=== PATIENT | male | born 1995 | race African-American/Black ===

== ENCOUNTER → 2018-05-06 | Day surgery (SDC) | payer OTHER ==
[2018-05-02 14:51] VITALS: BMI 21.9
[2018-05-06 08:58] LABS: BASO % 0.5 % (0-2.0); EOS % 0.7 % (0-4.5); HEMATOCRIT 38.5 % (35.4-49); LYMPH % 67.4 % (8-40); MCH 30.8 pg (25.7-33.7); MCHC 33.7 g/dl (32.0-35.9); MEAN CELL VOLUME 91.4 fl (80-96); MEAN PLT VOLUME 8.5 fl (7.5-11.1); MONO % 6.2 % (3.8-10.2); NEUT % 25.2 % (42.8-82.8); PLATELET COUNT 151 K/MM3 (134-434); RBC 4.21 M/mm3 (4.00-5.60); RDW 14.2 % (11.9-15.9); WHITE BLOOD COUNT 5.4 K/mm3 (4.0-10.0)
[2018-05-06 09:30] LABS: INR 0.98 (0.83-1.09); PROTHROMBIN TIME (PATIENT) 11.1 SEC (9.7-13.0)
[2018-05-06 09:55] VITALS: TEMP 98.4
[2018-05-06 12:29] LABS: ACANTHOCYTES 0; ANISOCYTOSIS 0; HELMET CELLS 0; HOWELL-JOLLY BODIES 0; MACROCYTOSIS 0; OVALOCYTE 0; PLATELET ESTIMATE DECREASED; ROULEAU 0; SICKELED CELLS 0; TARGET CELLS 0; TEAR DROP CELLS 0; TOXIC GRANULATION 0
[2018-05-06 15:53] VITALS: BP 116/68; PULSE 73
--- NOTE | 2018-05-13 17:38 | PATH ---
Surgical Pathology Report Patient Name: EDU LINDA [facility]. Rec. #: [id number] /Age/Gender: 1995 (Age: 22) / M Account: [id number] Location: RADIOLOGY INTER Taken: 05/06/2018 Received: 05/06/2018 Reported: 05/13/2018 Physicians: Ankita Nunez M.D. Specimen(s) Received LYMPH NODE BIOPSY (ALSO RECEIVED TISSUE IN RPMI) Clinical History 22-year-old male with history of HIV, now with bilateral cervical lymph node enlargement Final Diagnosis CERVICAL LYMPH NODE, CORE BIOPSY: FRAGMENTS OF LYMPH NODES WITH NO EVIDENCE OF LYMPHOPROLIFERATIVE PROCESS. SEE COMMENT. Comments: Flow cytometry immunophenotyping, performed on the concurrent sample ([id number]), detected a CD10+ B-cell population with no evidence of clonality, probably representing germinal center cells. The specimen shows plasmacytosis with [place] excess. However, clonal plasma cell populations cannot be definitely demonstrated. Correlation with relevant clinical and laboratory data is essential. If the lymphadenopathy persists, repeat/excisional lymph node biopsy with complete evaluation (including flow cytometry immunophenotyping) is suggested for definitive assessment. This case was sent to Dr. Anthony Berrios from [facility], [place], [place] ([id number]) the diagnosis above reflects his opinion. See [facility] report ([id number] and [id number]) for additional details. Electronically Signed Christina Conway M.D. Addendum Reported: 06/12/2018 Addendum Diagnosis AFB AND PAS special stains are negative for Acid fast bacilli and fungal organisms. Christina Conway M.D. Gross Description Received in formalin labeled "lymph node biopsy," are 4 rivera fragments of soft tissue ranging from 0.1-0.6 cm in length and averaging 0.1 cm diameter. The specimens are submitted in toto in one cassette. There is additional tissue received in RPMI solution which is sent for flow cytometry. saudi/05/06/2018
== END | disposition home or self-care (01) ==
LOC: JRADIR 08:37
PROVIDERS: ATTEND Specialist
PROC: 07B13ZX Excision of Right Neck Lymphatic, Percutaneous Approach, Diagnostic (ICD-10-PCS; principal; 2018-05-06)
DX: R59.0 Localized enlarged lymph nodes (principal); Z21 Asymptomatic human immunodeficiency virus [HIV] infection status; J45.909 Unspecified asthma, uncomplicated
CPT/HCPCS: 36415; 76942-TC; 85025; 85610; 87899; 88305-TC; 88313-TC

== ENCOUNTER 2018-06-06 11:58 | Emergency (ER) | payer OTHER ==
[2018-06-06 12:04] VITALS: BMI 22.4
[2018-06-06] MEDS ORDERED: SODIUM CHLORIDE 0.9% 500 ML INFUS.BAG IV ONE (13:09)
--- NOTE | 2018-06-06 13:13 | PDOC ---
History of Present Illness - General Chief Complaint: Respiratory Stated Complaint: Respiratory Time Seen by Provider: 06/06/18 12:08 - History of Present Illness Initial Comments: 06/06/18 13:02 22 yo M w a hx of asthma and HIV who is not on antiretrovirals is here with a week of a constant cough occasionally productive of white sputum and a low grade fever for the past 3 days. He denies any hemoptysis, chest pain, or weight loss. He does endorse fatigue, occasional night sweats, fever, and myalgias. He had a positive PPD test and a positive interferon gamma assay. He endorses a positive family history of TB. He had a chest CT and a lymph node biopsy which showed no signs of active TB and the biopsy was AFB negative. Recent CD4 count 557 He has needed to use his albuterol inhaler more frequently than usual in the past few days and feels like his fever is causing a mild asthma exacerbation. he is not currently experiencing chest pain, SOB, or difficulty breathing. He denies any diarrhea, constipation or urinary complaints. He is sexually active with one male partner who also has HIV and is on antiretrovirals he has a hx of syphillis, likely primary, in the past which was treated with Penicillin. 06/06/18 13:13 06/06/18 13:33 06/06/18 13:34 06/06/18 14:45 Past History - Past Medical History Allergies/Adverse Reactions: Allergies Allergy/AdvReac Type Severity Reaction Status Date / Time piperacillin [From Zosyn] Allergy Unknown Rash Verified 06/06/18 12:04 tazobactam [From Zosyn] Allergy Unknown Rash Verified 06/06/18 12:04 Home Medications: Ambulatory Orders Albuterol Sulfate Inhaler - [Ventolin HFA Inhaler -] 1 - 2 inh PO QID PRN #1 inhaler 02/20/18 Fluticasone/Salmeterol [Advair 250-50 Diskus] 1 each IH BID #1 blst.w.dev Azithromycin 250 mg PO DAILY #4 tablet 06/06/18 Anemia: Yes (middle school) Asthma: Yes Cancer: No Cardiac Disorders: No CVA: No COPD: No CHF: No Dementia: No Diabetes: No GI Disorders: No Disorders: No HTN: No Hypercholesterolemia: No Liver Disease: No Seizures: No Thyroid Disease: No - Surgical History Abdominal Surgery: No Appendectomy: No Cardiac Surgery: No Cholecystectomy: No Lung Surgery: No Neurologic Surgery: No Orthopedic Surgery: No - Suicide/Smoking/Psychosocial Hx Smoking History: Never smoked Have you smoked in the past 12 months: Yes Information on smoking cessation initiated: No Hx Alcohol Use: Yes (social) Drug/Substance Use Hx: No Substance Use Type: None Hx Substance Use Treatment: No Review of Systems - Review of Systems Comments:: 06/06/18 14:54 CONSTITUTIONAL: Positive: Fever, chills, malaise, loss of appetite. Absent: diaphoresis, generalized weakness HEENT: Absent: rhinorrhea, nasal congestion, throat pain, throat swelling, difficulty swallowing, mouth swelling, ear pain, eye pain, visual Changes CARDIOVASCULAR: Absent: chest pain, syncope, palpitations, irregular heart rate, lightheadedness , peripheral edema RESPIRATORY: Positive: Cough Absent: shortness of breath, dyspnea with exertion, orthopnea, wheezing, stridor , hemoptysis GASTROINTESTINAL: Absent: abdominal pain, abdominal distension, nausea, vomiting, diarrhea, constipation, melena, hematochezia GENITOURINARY: Absent: dysuria, frequency, urgency, hesitancy, hematuria, flank pain, genital pain MUSCULOSKELETAL: Positive: myalgia Absent: arthralgia, joint swelling SKIN: Absent: rash, itching, pallor HEMATOLOGIC/IMMUNOLOGIC: Absent: easy bleeding, easy bruising, lymphadenopathy, frequent infections ENDOCRINE: Absent: unexplained weight gain, unexplained weight loss, heat intolerance, cold intolerance NEUROLOGIC: Absent: headache, focal weakness or paresthesias, dizziness, unsteady gait, seizure, mental status changes, bladder or bowel incontinence PSYCHIATRIC: Absent: anxiety, depression, suicidal or homicidal ideation, hallucinations. *Physical Exam - Vital Signs Last Vital Signs Temp Pulse Resp BP Pulse Ox 99.2 F 118 H 21 151/108 98 06/06/18 12:01 06/06/18 12:01 06/06/18 12:01 06/06/18 12:01 06/06/18 12:01 - Physical Exam Comments: 06/06/18 14:56 GENERAL: Well developed, well nourished. Awake and alert. No acute distress. HEENT: mildly erythematous retro-oropharynx Normocephalic, atraumatic. PERRLA, EOMI. No conjunctival pallor. Sclera are non- icteric. Moist mucous membranes. NECK: Occasional small bilateral lymphadenopathy Supple. Full ROM. No JVD. No thyromegaly. CARDIOVASCULAR: Tachycardic rate and regular rhythm. No murmurs, rubs, or gallops. Distal pulses are 2+ and symmetric. PULMONARY: No evidence of respiratory distress. Lungs clear to auscultation bilaterally. No wheezing, rales or rhonchi. ABDOMINAL: Soft. Non-tender. Non-distended. No rebound or guarding. No organomegaly. Normoactive bowel sounds. MUSCULOSKELETAL Normal range of motion at all joints. No bony deformities or tenderness. No CVA tenderness. EXTREMITIES: No cyanosis. No clubbing. No edema. No calf tenderness. SKIN: Warm and dry. Normal capillary refill. No rashes. No jaundice. NEUROLOGICAL: Alert, awake, appropriate. Cranial nerves 2-12 intact. Normal speech. Gait is normal without ataxia. PSYCHIATRIC: Cooperative. Good eye contact. Appropriate mood and affect. ED Treatment Course - LABORATORY CBC & Chemistry Diagram: 06/06/18 14:15 06/06/18 14:15 Medical Decision Making - Medical Decision Making 06/06/18 14:58 22 yo M w a hx of asthma and HIV who is not on antiretrovirals is here with a low grade fever and cough. Recent CD4 557. He was PPD + and igra + but chest ct, chest xr, and lymph node biopsy for AFB stain were all negative for active TB. This is most suspicious for a URI. will do nasal swabs to r/o pertussis and influenza Plan: duoneb, cbc, cmp, CXR, fluids, tylenol, re-assess. Cough improved significantly after a duoneb. Vitals re-checked and are now WNL. Consulted Dr. waldron and she agrees best course of action is to DC patient with a 4 day course of azithromycin. He will FU as outpatient with her. 06/06/18 15:06 06/06/18 16:44 *DC/Admit/Observation/Transfer Diagnosis at time of Disposition: Cough - Discharge Dispostion Disposition: HOME Condition at time of disposition: Improved Decision to Admit order: No - Prescriptions Prescriptions: Azithromycin 250 mg PO DAILY #4 tablet - Referrals Referrals: Zaida Brower LITIGATION COORDINATOR [Primary Care Provider] - - Patient Instructions Additional Instructions: Please make sure to follow up with your PCP or the [place] facility in the next 3 to 5 days to ensure you are getting better. supervisor beam department the Antibiotic we are sending to your pharmacy. Please come back to the ER if you develop a bad fever , start vomiting having bad diarrhea or have any other concerns. Print Language: MALTESE - Post Discharge Activity
[2018-06-06] MEDS ORDERED: ACETAMINOPHEN INJECTION 100 ML IVPB ONE (14:06)
[2018-06-06 14:33] LABS: BASO % 0.5 % (0-2.0); EOS % 2.4 % (0-4.5); HEMATOCRIT 41.9 % (35.4-49); LYMPH % 41.3 % (8-40); MCH 30.4 pg (25.7-33.7); MCHC 33.4 g/dl (32.0-35.9); MEAN CELL VOLUME 91.2 fl (80-96); MEAN PLT VOLUME 9.3 fl (7.5-11.1); MONO % 6.6 % (3.8-10.2); NEUT % 49.2 % (42.8-82.8); PLATELET COUNT 173 K/MM3 (134-434); RDW 14.3 % (11.9-15.9); WHITE BLOOD COUNT 6.1 K/mm3 (4.0-10.0)
[2018-06-06 14:54] LABS: CHLORIDE 108 mmol/L (98-107); POTASSIUM 4.1 mmol/L (3.5-5.1); SODIUM 145 mmol/L (136-145)
[2018-06-06 15:09] LABS: ALBUMIN 3.2 g/dl (3.4-5.0); ALK PHOS 96 U/L (45-117); ANION GAP 9 MMOL/L (8-16); BILIRUBIN,TOTAL 0.2 mg/dL (0.2-1.0); BLOOD UREA NITROGEN 7 mg/dL (7-18); CALCIUM 8.7 mg/dL (8.5-10.1); CO2 28 mmol/L (21-32); CREATININE 0.9 mg/dL (0.55-1.3); GLUCOSE,RANDOM 85 mg/dL (74-106); SGOT/AST 27 U/L (15-37); SGPT/ALT 29 U/L (13-61); TOT PROT 9.4 g/dl (6.4-8.2)
[2018-06-06] MEDS ORDERED: ALBUTEROL SO4 2.5/IPRATROPIUM 0.5 INH SOL 3 ML VIAL.NEB. NEB ONE (15:22)
[2018-06-06] MEDS ORDERED: ALBUTEROL SO4 0.083% IH SOL 2.5 MG/3 ML VIAL.NEB. NEB ONE (15:28)
--- NOTE | 2018-06-06 15:51 | PDOC ---
Attending Attestation - ED Attending Attestation I have performed the following: I have examined & evaluated the patient, The case was reviewed & discussed with the resident, I agree w/resident's findings & plan, Exceptions are as noted - HPI HPI: 06/06/18 15:47 22 yo male h/o recently diagnosed HIV seen at [facility], not on retrovirals due to concerns for neck mass, here from clinic for cough, low grade fevers. h/ o asthma. pt states hard time of year. no h/o intubations. no n/v. no recent abx. uses inhaler. also h/o positive PPD but has had negative chest ct, had biopsy of neck mass which was AFB negative. cough nonproductive. does have night sweats attributed to HIV. - Physicial Exam PE: 06/06/18 15:50 awake alert lungs clear bilaterally heart rrr no mrg. abd soft nt nd. skin warm and dry no rash. alert oriented x 3. - Medical Decision Making 06/06/18 15:51 differential: asthma bronchospasm, viral uri, pneumonia, less likley related to TB as pt with negative chest ct. plan cxr labs duoneb. reassess. cxr negative. labs unremarkable. given duoneb cough improved. d/w HURST doctor. will tx wit z efraín due to immunocompromise.
[2018-06-06] MEDS ORDERED: AZITHROMYCIN 250 MG TABLET PO ONE (16:09)
[2018-06-06] MEDS ORDERED: AZITHROMYCIN 500 MG TABLET ONE (16:31)
[2018-06-06 16:42] VITALS: BP 134/74; PULSE 67; TEMP 98.2
== END 2018-06-06 16:56 | disposition home or self-care (01) ==
LOC: JERFT 11:58 → JER 11:58
PROC: 3E0F7GC Introduction of Other Therapeutic Substance into Respiratory Tract, Via Natural or Artificial Opening (ICD-10-PCS; principal; 2018-06-06)
DX: R05 Cough (principal); Z21 Asymptomatic human immunodeficiency virus [HIV] infection status; J45.909 Unspecified asthma, uncomplicated; Z88.1 Allergy status to other antibiotic agents
CPT/HCPCS: 36415; 71046-TC-FY; 80053; 85025; 87040; 87798; 87804; 99281-25; J7620

== ENCOUNTER 2018-06-26 09:47 | Emergency (ER) | payer OTHER ==
[2018-06-26 10:00] VITALS: BMI 22.2
[2018-06-26] MEDS ORDERED: ACETAMINOPHEN 325 MG TABLET (FP) PO ONE (11:46)
[2018-06-26] MEDS ORDERED: SODIUM CHLORIDE 1,000 ML IV STA ×2 (11:47→16:33)
--- NOTE | 2018-06-26 12:04 | PDOC ---
History of Present Illness - General Chief Complaint: Pain Stated Complaint: DIARRHEA, FEVER Time Seen by Provider: 06/26/18 11:04 History Source: Patient - History of Present Illness Timing/Duration: other Severity: severe Associated Symptoms: reports: fever/chills, nausea/vomiting, weakness. denies: chest pain, cough, headaches, shortness of breath Past History - Past Medical History Allergies/Adverse Reactions: Allergies Allergy/AdvReac Type Severity Reaction Status Date / Time piperacillin [From Zosyn] Allergy Unknown Rash Verified 06/26/18 10:00 tazobactam [From Zosyn] Allergy Unknown Rash Verified 06/26/18 10:00 Home Medications: Ambulatory Orders Albuterol Sulfate Inhaler - [Ventolin HFA Inhaler -] 1 - 2 inh PO QID PRN #1 inhaler 02/20/18 Fluticasone/Salmeterol [Advair 250-50 Diskus] 1 each IH BID #1 blst.w.dev Azithromycin 250 mg PO DAILY #4 tablet 06/06/18 Bictegrav/Emtricit/Tenofov Ala [Biktarvy 50-200-25 mg Tablet] 1 each PO DAILY # 30 tablet 06/13/18 Acetaminophen [Tylenol] 650 mg PO Q6H #30 capsule 06/26/18 Levofloxacin [Levaquin] 500 mg PO DAILY #7 tablet 06/26/18 Anemia: Yes (middle school) Asthma: Yes Cancer: No Cardiac Disorders: No CVA: No COPD: No CHF: No Dementia: No Diabetes: No GI Disorders: No Disorders: No HTN: No Hypercholesterolemia: No Liver Disease: No Seizures: No Thyroid Disease: No - Surgical History Abdominal Surgery: No Appendectomy: No Cardiac Surgery: No Cholecystectomy: No Lung Surgery: No Neurologic Surgery: No Orthopedic Surgery: No - Suicide/Smoking/Psychosocial Hx Smoking History: Never smoked Have you smoked in the past 12 months: Yes Information on smoking cessation initiated: Yes Hx Alcohol Use: No Drug/Substance Use Hx: No Substance Use Type: None Hx Substance Use Treatment: No Review of Systems - Review of Systems Constitutional: Yes: Chills, Fever, Malaise HEENTM: No: Throat Pain Respiratory: No: Cough, Shortness of Breath Cardiac (ROS): No: Chest Pain ABD/GI: Yes: Diarrhea, Nausea. No: Blood Streaked Bowels, Vomiting, Abdominal cramping : No: Dysuria *Physical Exam - Vital Signs Last Vital Signs Temp Pulse Resp BP Pulse Ox 102.6 F H 104 H 19 102/58 L 100 06/26/18 09:57 06/26/18 09:57 06/26/18 09:57 06/26/18 09:57 06/26/18 09:57 - Physical Exam General Appearance: Yes: Appropriately Dressed. No: Apparent Distress HEENT: positive: Normal Voice Neck: positive: Supple Respiratory/Chest: positive: Lungs Clear, Normal Breath Sounds. negative: Respiratory Distress Cardiovascular: positive: S1, S2, Tachycardia Gastrointestinal/Abdominal: positive: Soft. negative: Tender Musculoskeletal: negative: CVA Tenderness Integumentary: positive: Dry, Warm Neurologic: positive: Fully Oriented, Alert, Normal Mood/Affect, Other (no e/o meningismus) ED Treatment Course - LABORATORY CBC & Chemistry Diagram: 06/26/18 13:48 06/26/18 13:48 - RADIOLOGY Radiology Studies Ordered: Category Date Time Status CHEST X-RAY PORTABLE* [RAD] Stat Radiology 06/26/18 11:47 Ordered Medical Decision Making - Medical Decision Making 06/26/18 12:00 22-year-old male diagnosed with HIV, January of this year and not yet started on medication, here with fever, chills, malaise, nausea, anorexia and diarrhea x one week. States he had 2-3 e/o NB, watery stools. No abd pain, dysuria, cough, SOB, CP, FERRARI or neck stiffness. Status post influenza and pneumovax vaccine last week per patient. Not homeless and no h/o incarceration See exam Viral syndrome Hx of HIV, cd4 500s per pt, unknown VL and not yet on meds S/p flu and pneumovax last week Triggered sepsis -antipyretic -IVF -labs -valdes-cx -CXR -stool studies given hx 06/26/18 12:05 06/26/18 15:26 06/26/18 16:52 Pt's PMD, Dr Pierre, at bedside. States she would like pt to receive 1 dose of IV levaquin and admit to OBs. Pt refusing to stay at this time. Only agrees to CXR/IVF/abx in ED but would like to be discharged after 10/03/18 18:20 Pt s/p IVF and antibiotics. Repeat vitals within normal limits. Patient signed AMA form at this time and was discharged in stable condition with antibiotics and strict return precautions. Patient also aware that C.difficile and other stool studies has not returned and states he will call for results. Patient also aware that ED staff will call him if any result is positive *DC/Admit/Observation/Transfer Diagnosis at time of Disposition: Pneumonia Qualifiers: Pneumonia type: due to unspecified organism Laterality: left Lung location: unspecified part of lung Qualified Code(s): J18.9 - Pneumonia, unspecified organism - Discharge Dispostion Disposition: AGAINST MEDICAL ADVICE Condition at time of disposition: Improved - Prescriptions Prescriptions: Acetaminophen [Tylenol] 650 mg PO Q6H #30 capsule Levofloxacin [Levaquin] 500 mg PO DAILY #7 tablet - Referrals Referrals: Zaida Brower, TRANSFER OPERATOR [Primary Care Provider] - - Patient Instructions Additional Instructions: You have declined to be admitted for your pneumonia. Please take antibiotics as prescribed and know that you can return to ER at any time. Your stool studies are still pending and we will call you if any of the results are positive. Otherwise, you can call us at [phone] for results. Please follow-up at the [facility] this week - Post Discharge Activity
--- NOTE | 2018-06-26 12:09 | PDOC ---
*Physical Exam - Vital Signs Last Vital Signs Temp Pulse Resp BP Pulse Ox 102.6 F H 104 H 19 102/58 L 100 06/26/18 09:57 06/26/18 09:57 06/26/18 09:57 06/26/18 09:57 06/26/18 09:57 - Physical Exam Comments: 06/26/18 12:07 The patient was examined by [SONNY De Leon] under my direct supervision. I personally evaluated the patient. I concur with the above findings and the plan of care. ED Treatment Course - LABORATORY CBC & Chemistry Diagram: 06/26/18 13:48 06/26/18 13:48 *DC/Admit/Observation/Transfer Diagnosis at time of Disposition: Pneumonia - Discharge Dispostion Disposition: AGAINST MEDICAL ADVICE Condition at time of disposition: Improved - Prescriptions Prescriptions: Acetaminophen [Tylenol] 650 mg PO Q6H #30 capsule Levofloxacin [Levaquin] 500 mg PO DAILY #7 tablet - Referrals Referrals: Zaida Brower, TANK STAVE ASSEMBLER [Primary Care Provider] - - Patient Instructions Additional Instructions: You have declined to be admitted for your pneumonia. Please take antibiotics as prescribed and know that you can return to ER at any time. Your stool studies are still pending and we will call you if any of the results are positive. Otherwise, you can call us at [phone] for results. Please follow-up at the [facility] this week - Post Discharge Activity
[2018-06-26] MEDS ORDERED: ACETAMINOPHEN INJECTION 100 ML IVPB ONE (13:43)
[2018-06-26 14:16] LABS: VENOUS PH 7.42 (7.32-7.42); VENOUS PO2 33.2 mmHg (28-48)
[2018-06-26 14:22] LABS: BASO % 0.2 % (0-2.0); EOS % 0.2 % (0-4.5); HEMATOCRIT 41.7 % (35.4-49); HEMOGLOBIN 13.9 GM/dL (11.7-16.9); LYMPH % 42.1 % (8-40); MCH 29.7 pg (25.7-33.7); MCHC 33.4 g/dl (32.0-35.9); MONO % 7.6 % (3.8-10.2); NEUT % 49.9 % (42.8-82.8); PLATELET COUNT 206 K/MM3 (134-434); RBC 4.68 M/mm3 (4.00-5.60); RDW 13.5 % (11.9-15.9); WHITE BLOOD COUNT 9.7 K/mm3 (4.0-10.0)
[2018-06-26 14:33] LABS: INR 1.28 (0.83-1.09); PROTHROMBIN TIME (PATIENT) 15.1 SEC (9.7-13.0)
[2018-06-26 14:37] LABS: ALBUMIN 2.8 g/dl (3.4-5.0); ALK PHOS 77 U/L (45-117); ANION GAP 7 MMOL/L (8-16); BILIRUBIN,TOTAL 0.4 mg/dL (0.2-1); BLOOD UREA NITROGEN 10 mg/dL (7-18); CALCIUM 8.4 mg/dL (8.5-10.1); CHLORIDE 102 mmol/L (98-107); CO2 24 mmol/L (21-32); GLUCOSE,RANDOM 74 mg/dL (74-106); POTASSIUM 3.8 mmol/L (3.5-5.1); SGOT/AST 25 U/L (15-37); SGPT/ALT 18 U/L (13-61); SODIUM 133 mmol/L (136-145); TOT PROT 9.3 g/dl (6.4-8.2)
[2018-06-26] MEDS ORDERED: ACETAMINOPHEN 1000 MG/100 ML VIAL (NON FORMULARY) IVPB ONE (15:05)
[2018-06-26 16:52] LABS: URINE APPEARANCE SLCLOUDY; URINE BILIRUBIN NEGATIVE (<2.0 mg/dL); URINE COLOR AMBER; URINE GLUCOSE (UA) NEGATIVE (NEGATIVE); URINE KETONE 1+ (NEGATIVE); URINE LEUK ESTERASE NEGATIVE (NEGATIVE); URINE NITRITE NEGATIVE (NEGATIVE); URINE UROBILINOGEN NEGATIVE mg/dL (0.2-1.0)
--- NOTE | 2018-06-26 16:57 | CON.ID ---
Consult Consult Specialty:: infectious disease Referred by:: er Reason for Consultation:: fever - History of Present Illness Chief Complaint: fever, weakness History of Present Illness: 22 year old man known to me from clinic, cd4 over 500, not yet on meds- unable to obtain due to insurance issues devleoped malaise, fevers, unable to eat with nausea and nonbloody diarrhea over last several days s/p influenza vaccine and prevnar 06/13 seen in clinic today and sent to ed +cough (history of asthma) fever to 102.6 in ED one episode diarrhe in ed- stools sent no vomiting fever down , received one liter ivf feels well reports boyfriend had recent cold history of reports no unusual food preferences, no contacts with diarrhea - History Source History Provided By: Patient Limitations to Obtaining History: No Limitations - Past Medical History Infectious Disease: Yes: HIV, Other (syphilis, +ppd- not yet prophylaxed) - Alcohol/Substance Use Hx Alcohol Use: No - Smoking History Smoking history: Never smoked Have you smoked in the past 12 months: Yes Home Medications - Allergies Allergies/Adverse Reactions: Allergies Allergy/AdvReac Type Severity Reaction Status Date / Time piperacillin [From Zosyn] Allergy Unknown Rash Verified 06/26/18 10:00 tazobactam [From Zosyn] Allergy Unknown Rash Verified 06/26/18 10:00 - Home Medications Home Medications: Ambulatory Orders Albuterol Sulfate Inhaler - [Ventolin HFA Inhaler -] 1 - 2 inh PO QID PRN #1 inhaler 02/20/18 Fluticasone/Salmeterol [Advair 250-50 Diskus] 1 each IH BID #1 blst.w.dev Azithromycin 250 mg PO DAILY #4 tablet 06/06/18 Bictegrav/Emtricit/Tenofov Ala [Biktarvy 50-200-25 mg Tablet] 1 each PO DAILY # 30 tablet 06/13/18 Family Disease History - Family Disease History Family Disease History: Diabetes: Grandparent (pgm - dm), Father (htn, [place] x 3), Mother (htn, fibromyalgia), Heart Disease: Father, Mother, Other: Sister (2 sisters - (1 w/ eczema)) Review of Systems - Review of Systems Constitutional: reports: Fever, Lethargy, Malaise, Weakness Eyes: reports: No Symptoms HENT: reports: No Symptoms Neck: reports: No Symptoms Cardiovascular: denies: Chest Pain Respiratory: reports: Cough Gastrointestinal: reports: Diarrhea, Nausea Genitourinary: reports: No Symptoms Physical Exam Vital Signs: Vital Signs Temperature 102.7 F H 06/26/18 11:47 Pulse Rate 104 H 06/26/18 09:57 Respiratory Rate 19 06/26/18 09:57 Blood Pressure 102/58 L 06/26/18 09:57 O2 Sat by Pulse Oximetry (%) 100 06/26/18 09:57 Constitutional: Yes: No Distress, Calm, Thin Eyes: Yes: Conjunctiva Clear HENT: Yes: Atraumatic, Normocephalic Neck: Yes: Trachea Midline Cardiovascular: Yes: Regular Rate and Rhythm Respiratory: Yes: Regular, Diminished (crackles at bases) Gastrointestinal: Yes: Soft. No: Tenderness ...Rectal Exam: Yes: Deferred Extremities: Yes: WNL Edema: No Psychiatric: Yes: Alert, Oriented Labs: CBC, BMP 06/26/18 13:48 06/26/18 13:48 Imaging - Results Chest X-ray: Pending Problem List - Problems (1) Fever Code(s): R50.9 - FEVER, UNSPECIFIED (2) Diarrhea Code(s): R19.7 - DIARRHEA, UNSPECIFIED (3) HIV antibody positive Code(s): Z21 - ASYMPTOMATIC HUMAN IMMUNODEFICIENCY VIRUS INFECTION STATUS Assessment/Plan have advised admission for hydration and antibiotics cultures of blood and stool are pending needs cxray would treat with levaquin while awaiting results given the fact he has been sick for sevreal days and is not improving salmonella is a possiblity as well as other enteric pathogens, send cdiff, recent zithromax use legionella is as well-check cxray d/w ER attending
[2018-06-26 16:59] LABS: URINE PROTEIN 1+ (NEGATIVE)
[2018-06-26 17:04] LABS: EPI CELLS RARE /HPF (FEW); URINE MUCUS MANY
[2018-06-26 17:47] VITALS: BP 112/69; PULSE 80; TEMP 98.5
--- NOTE | 2018-06-27 22:06 | EKG ---
Test Reason : Blood Pressure : / mmHG Vent. Rate : 098 BPM Atrial Rate : 098 BPM P-R Int : 128 ms QRS Dur : 074 ms QT Int : 304 ms P-R-T Axes : 052 015 045 degrees QTc Int : 388 ms NORMAL SINUS RHYTHM NORMAL ECG NO PREVIOUS ECGS AVAILABLE Confirmed by MAYNOR GOULD MD ([id number]) on 06/27/2018 10:06:33 PM Referred By: Confirmed By:MAYNOR GOULD MD
== END 2018-06-26 18:55 | disposition left against medical advice (07) ==
LOC: JER 09:47
PROC: 3E03329 Introduction of Other Anti-infective into Peripheral Vein, Percutaneous Approach (ICD-10-PCS; principal; 2018-06-26)
PROC: 3E033NZ Introduction of Analgesics, Hypnotics, Sedatives into Peripheral Vein, Percutaneous Approach (ICD-10-PCS; 2018-06-26)
PROC: 3E0337Z Introduction of Electrolytic and Water Balance Substance into Peripheral Vein, Percutaneous Approach (ICD-10-PCS; 2018-06-26)
DX: J18.9 Pneumonia, unspecified organism (principal); Z21 Asymptomatic human immunodeficiency virus [HIV] infection status
CPT/HCPCS: 36415; 71046-TC-FY; 80053; 81003; 81015; 82803; 83605; 83690; 85025; 85610; 85730; 86359; 86360; 87040; 87045; 87046; 87086; 87177; 87209; 87324; 87449; 87804; 87899; 93005; 93010; 99283-25; J0131; J7030

== ENCOUNTER → 2019-05-19 | Outpatient (CLI) | payer OTHER | LOC: YHH 11:53 ==